=== PATIENT | male | born 2000 | race Caucasian/White ===

== ENCOUNTER 2021-04-01 14:05 | Emergency (ER) | payer OTHER ==
[~2021-04-01] VITALS: Ht 162.6 cm; Wt 61.4 kg
[2021-04-01] MEDS ORDERED: DIPH,PERTUSS(ACELL),TET VAC/PF 0.5 ML IM-VACC ONE ×2 (14:30→14:31)
[2021-04-01 15:29] VITALS: BP 124/74
== END 2021-04-01 15:33 | disposition home or self-care (01) ==
LOC: ED 15:20
DX: M79.641 Pain in right hand (principal)
CPT/HCPCS: 90471; 90715